=== PATIENT | male | born 1965 | race Caucasian/White ===

== ENCOUNTER → 2017-04-13 | Outpatient (CLI) | payer OTHER ==
[2017-04-13 15:26] LABS: HEMOGLOBIN A1C 5.27 % (4.2-6.0)
[2017-04-13 16:32] LABS: CHOL/HDL RATIO 2.98 RATIO (0-4.0); LDL CHOLESTEROL,CALCULATED 80.4 mg/dL
[2017-04-13 17:10] LABS: BLOOD UREA NITROGEN 17 mg/dL (7-22); BUN/CREATININE RATIO 21.25 (6-20); CALCIUM 9.5 mg/dL (8.7-10.7); EST GLOMERULAR FILTRATION > 60 (>60 ml/min/1.73m(2)); SERUM ALBUMIN 4.1 g/dL (3.5-4.8)
== END ==
LOC: LAB 09:20
PROVIDERS: ATTEND Physician Assistant Medical
DX: R73.9 Hyperglycemia, unspecified (principal); R53.83 Other fatigue; R63.5 Abnormal weight gain; R51 Headache; K92.1 Melena
CPT/HCPCS: 80053; 80061; 83036

== ENCOUNTER → 2017-06-06 | Outpatient (CLI) | payer OTHER ==
--- NOTE | 2017-06-06 09:17 | EKG ---
[facility] [place] Rate: 62 P: 24 ID: [id number] QRS: -21 QRSD: 88 T: 19 QT: 440 QTc: 446 Interpretive Statements SINUS RHYTHM No previous ECG available for comparison Electronically Signed On [email or web address] 09:53:25 MDT by Fritz Figueroa [id number]
[2017-06-06 14:48] LABS: BILIRUBIN,URINE NEGATIVE (NEG); CLARITY,URINE CLEAR (CLEAR); COLOR,URINE YELLOW; GLUCOSE, URINE (UA) NEGATIVE (NEG); NITRATE,URINE NEGATIVE (NEG); OCCULT BLOOD,URINE NEGATIVE (NEG); PH,URINE 6.5 (5.0-8.5); PROTEIN,URINE NEGATIVE (NEG); URINE SAMPLE TYPE VOIDED SPECIMEN
[2017-06-06 14:50] LABS: HEMATOCRIT 44.9 % (42.0-52.0); HEMOGLOBIN 15.9 g/dL (14.0-18.0); MEAN CORPUSCULAR HGB CONC 35.4 g/dL (33-37); MEAN CORPUSCULAR VOLUME 90.3 FL (80-90); MEAN PLATELET VOLUME 13.5 FL (7.4-12.2); RED BLOOD COUNT 4.97 10^6/uL (4.70-6.10)
[2017-06-06 14:54] LABS: BLOOD UREA NITROGEN 15 mg/dL (7-22); BUN/CREATININE RATIO 18.75 (6-20); CALCIUM 9.3 mg/dL (8.7-10.7); EST GLOMERULAR FILTRATION > 60 (>60 ml/min/1.73m(2)); SERUM ALBUMIN 3.6 g/dL (3.5-4.8)
[2017-06-06 15:10] LABS: BAND NEUTROPHILS % 1 % (0-10); BASOPHILS % (MANUAL) 0 % (0-1); EOSINOPHILS % (MANUAL) 4 % (0-8); LYMPHOCYTES % (MANUAL) 60 % (10-50); MONOCYTES % (MANUAL) 6 % (0-12); NEUTROPHILS % (MANUAL) 29 % (50-80); PLATELET MORPHOLOGY COMMENT NORMAL MORPHOLOGY (NORM); RBC MORPHOLOGY COMMENT NORMAL MORPHOLOGY (NORM); WBC MORPHOLOGY COMMENT NORMAL MORPHOLOGY (NORM)
== END ==
LOC: EKG 09:13
DX: Z01.812 Encounter for preprocedural laboratory examination (principal); Z01.810 Encounter for preprocedural cardiovascular examination; K92.1 Melena; K64.9 Unspecified hemorrhoids; Z72.0 Tobacco use
CPT/HCPCS: 80053; 81003; 83036; 85007; 93005; 93010